=== PATIENT | female | born 2000 | race Caucasian/White ===

== ENCOUNTER 2023-01-22 15:45 | Emergency (ER) | payer OTHER, BC ==
[~2023-01-22] VITALS: Ht 157.4 cm; Wt 81.6 kg
== END 2023-01-22 20:10 | disposition home or self-care (01) ==
LOC: ED 15:45
DX: S93.401A Sprain of unspecified ligament of right ankle, initial encounter (principal); X58.XXXA Exposure to other specified factors, initial encounter; Y93.89 Activity, other specified; Y92.128 Other place in nursing home as the place of occurrence of the external cause; Y99.0 Civilian activity done for income or pay

== ENCOUNTER 2025-01-22 19:58 | Emergency (ER) | payer BC ==
[~2025-01-22] VITALS: Ht 157.4 cm; Wt 91.8 kg
[2025-01-22] MEDS ORDERED: Tdap Vaccine 0.5 ML SYR (Adult Vaccine) IM ONE (20:45)
[2025-01-22] MEDS ORDERED: CEPHALEXIN 500 MG CAP PO ONE (20:45)
[2025-01-22] MEDS ORDERED: DERMABOND 1 EA APPL T ONE (21:05)
[2025-01-22] MEDS ORDERED: CEPHALEXIN500 M1 PO (21:28)
== END 2025-01-22 21:30 | disposition home or self-care (01) ==
LOC: ED 19:58
DX: S61.210A Laceration without foreign body of right index finger without damage to nail, initial encounter (principal); S61.011A Laceration without foreign body of right thumb without damage to nail, initial encounter; W26.8XXA Contact with other sharp object(s), not elsewhere classified, initial encounter; Y92.89 Other specified places as the place of occurrence of the external cause; Y93.89 Activity, other specified; Y99.8 Other external cause status

== ENCOUNTER 2025-02-11 23:59 | Emergency (ER) | payer BC ==
[~2025-02-11] VITALS: Ht 152.4 cm; Wt 81.6 kg
[~2025-02-11 23:59] MED LIST: CEPHALEXIN500 M1 PO
[2025-02-12] MEDS ORDERED: LORazepam 1 MG TAB PO ONE (00:15)
[2025-02-12] MEDS ORDERED: ALPRAZolam 0.25 MG TAB PO ONE (00:20)
[2025-02-12] MEDS ORDERED: SODIUM CHLORIDE 0.9% 1,000 ML IV ONE (00:35)
[2025-02-12] MEDS ORDERED: FAMOTIDINE 20 MG TAB PO ONE (00:35)
== END 2025-02-12 04:14 | disposition home or self-care (01) ==
LOC: ED 23:59
DX: F41.0 Panic disorder [episodic paroxysmal anxiety] (principal); T40.715A Adverse effect of cannabis, initial encounter; J45.909 Unspecified asthma, uncomplicated; Z79.899 Other long term (current) drug therapy; Z88.1 Allergy status to other antibiotic agents; Y92.89 Other specified places as the place of occurrence of the external cause